=== PATIENT | male | born 1980 | race Hispanic/Latino ===

== ENCOUNTER → 2025-03-26 | Outpatient (CLI) | payer OTHER ==
[~2025-03-26] MED LIST: AMOX500C2 PO; FLUT16H NS
== END | disposition home or self-care (01) ==
LOC: RAH 13:21
PROVIDERS: ATTEND Internal Medicine Cardiovascular Disease
DX: Z13.6 Encounter for screening for cardiovascular disorders (principal)
CPT/HCPCS: 75571